=== PATIENT | female | born 1980 | race African-American/Black ===

== ENCOUNTER 2017-11-20 17:35 | Emergency (ER) | payer BC ==
[~2017-11-20] VITALS: Ht 177.8 cm; Wt 106.0 kg
[2017-11-20 17:37] VITALS: BP 110/70; PULSE 63; RESP 16; TEMP 97.5; O2SAT 99
[2017-11-20] MEDS ORDERED: SODIUM CHLOR 0.9% 1000 ML INJ 1,000 ML IV SCH (18:13)
[2017-11-20] MEDS ORDERED: SODIUM CHLORIDE 0.9% FLUSH 10 ML FLUSH IV FLUSH PRN (18:15)
[2017-11-20] MEDS ORDERED: ALUMINUM/MAGNESIUM/SIMETH 30 ML CUP PO ONE (18:15)
[2017-11-20] MEDS ORDERED: LIDOCAINE VISCOUS 2% SOLN 15 ML UDC PO ONE (18:15)
[2017-11-20] MEDS ORDERED: PANTOPRAZOLE SODIUM 40 MG VIAL IVP ONE (18:15)
[2017-11-20] MEDS ORDERED: DICYCLOMINE HCL 10 MG CAP PO ONE (18:15)
[2017-11-20] MEDS ORDERED: ONDANSETRON HCL 4 MG/2 ML VIAL IVP ONE (18:15)
[2017-11-20 18:35] LABS: BASOPHIL # 0.1 TH/MM3 (0-0.2); BASOPHIL % 1.1 % (0.0-2.0); EOSINOPHIL # 0.3 TH/MM3 (0-0.4); EOSINOPHIL % 3.1 % (0.0-4.0); HEMOGLOBIN 10.9 GM/DL (11.6-15.3); LYMPHOCYTE # 1.7 TH/MM3 (1.0-4.8); MEAN CELL VOLUME 83.9 FL (80.0-100.0); MEAN CORPUSCULAR HEMOGLOBIN 28.7 PG (27.0-34.0); MEAN CORPUSCULAR HGB CONC 34.2 % (32.0-36.0); MEAN PLATELET VOLUME 7.7 FL (7.0-11.0); MONO % 8.8 % (0.0-8.0); MONOCYTE # 0.8 TH/MM3 (0-0.9); PLATELET COUNT 348 TH/MM3 (150-450); RED BLOOD COUNT 3.81 MIL/MM3 (4.00-5.30); RED CELL DISTRIBUTION WIDTH 14.8 % (11.6-17.2); WHITE BLOOD COUNT 8.8 TH/MM3 (4.0-11.0)
--- NOTE | 2017-11-20 18:37 | PD ---
HPI Chief Complaint: GI Complaint Time Seen by Provider: 18:02 Travel History International Travel<30 days: No Contact w/Intl Traveler<30days: No Traveled to known affect area: No History of Present Illness HPI 37-year-old -[place] female presents to the emergency department with reports of sudden onset epigastric pain while cooking dinner at approximately 430 this afternoon. She states the pain was intense and lasted for more than 20 minutes. She felt first it might of been gas, and she tried having a BM with small BM accomplished. Patient then states she sat down to eat and the pain got significantly worse to the point of crying, and feeling nauseous with diarrhea or vomiting. Patient states the pain still remains, and when it was at its worse it was radiating up to the neck. Patient now states pain is about a 7 out of 10. It was 10 out of 10 earlier. Patient denies any fever, chills, or other symptoms. Patient states she does have a history of fibroids for which he has been taking a lot of NSAIDs recently. Patient is allergic to morphine. PFS Past Medical History Asthma: Yes Tetanus Vaccination: < 5 Years ?: Not Past Surgical History Other Surgery: Yes (MYOMECTONY 2015) Social History Alcohol Use: No Tobacco Use: No Substance Use: No Allergies-Medications (Allergen,Severity, Reaction): Coded Allergies: morphine (Verified Adverse Reaction, Mild, Nausea/Vomiting, 11/20/17) Reported Meds & Prescriptions Reported Meds & Active Scripts Active Omeprazole 40 Mg Cap 40 Mg PO DAILY Review of Systems Except as stated in HPI: all other systems reviewed are Neg General / Constitutional: No: Fever Eyes: No: Visual changes HENT: No: Headaches Cardiovascular: No: Chest Pain or Discomfort Respiratory: No: Shortness of Breath Gastrointestinal: Positive: Nausea, Abdominal Pain, No: Vomiting, Diarrhea Genitourinary: No: Dysuria Musculoskeletal: No: Pain Skin: No Rash Neurologic: No: Weakness Psychiatric: No: Depression Endocrine: No: Polydipsia Hematologic/Lymphatic: No: Easy Bruising Physical Exam Narrative GENERAL: Patient appears in no obvious distress. SKIN: Warm and dry. Normal color. Normal turgor. No rash. HEAD: Atraumatic. Normocephalic. EYES: Pupils equal and round. No scleral icterus. No injection or drainage. ENT: No nasal bleeding or discharge. Mucous membranes pink and moist. Pharynx is clear. Airways patent NECK: Trachea midline. Supple nontender. CARDIOVASCULAR: Regular rate and rhythm. RESPIRATORY: No accessory muscle use. Clear to auscultation. Breath sounds equal bilaterally. GASTROINTESTINAL: Abdomen soft, moderate upper epigastric tenderness reproducible of symptoms, nondistended. No CVA tenderness. Hepatic and splenic margins not palpable. MUSCULOSKELETAL: Extremities without clubbing, cyanosis, or edema. No obvious deformities. NEUROLOGICAL: Awake and alert. No obvious cranial nerve deficits. Motor grossly within normal limits. Five out of 5 muscle strength in the arms and legs. Normal speech. PSYCHIATRIC: Appropriate mood and affect; insight and judgment normal. Data Data Last Documented VS Vital Signs Date Time Temp Pulse Resp B/P (MAP) Pulse Ox O2 Delivery O2 Flow Rate FiO2 11/20/17 19:20 56 16 142/80 (100) 100 11/20/17 17:37 97.5 Orders Orders Complete Blood Count With Diff (11/20/17 18:13) Comprehensive Metabolic Panel (11/20/17 18:13) Lipase (11/20/17 18:13) Prothrombin Time / Inr (Pt) (11/20/17 18:13) Act Partial Throm Time (Ptt) (11/20/17 18:13) Urinalysis - C+S If Indicated (11/20/17 18:13) Iv Access Insert/Monitor (11/20/17 18:13) Ecg Monitoring (11/20/17 18:13) Oximetry (11/20/17 18:13) Ondansetron Inj (Zofran Inj) (11/20/17 18:15) Pantoprazole Inj (Protonix Inj) (11/20/17 18:15) Sodium Chlor 0.9% 1000 Ml Inj (Ns 1000 M (11/20/17 18:13) Sodium Chloride 0.9% Flush (Ns Flush) (11/20/17 18:15) Al-Mag Hy-Si 40-40-4 Mg/Ml Liq (Mag-Al P (11/20/17 18:15) Lidocaine 2% Viscous (Xylocaine 2% Visco (11/20/17 18:15) Dicyclomine (Bentyl) (11/20/17 18:15) Labs Laboratory Tests Test 11/20/17 18:00 11/20/17 19:30 White Blood Count 8.8 TH/MM3 Red Blood Count 3.81 MIL/MM3 Hemoglobin 10.9 GM/DL Hematocrit 32.0 % Mean Corpuscular Volume 83.9 FL Mean Corpuscular Hemoglobin 28.7 PG Mean Corpuscular Hemoglobin Concent 34.2 % Red Cell Distribution Width 14.8 % Platelet Count 348 TH/MM3 Mean Platelet Volume 7.7 FL Neutrophils (%) (Auto) 68.0 % Lymphocytes (%) (Auto) 19.0 % Monocytes (%) (Auto) 8.8 % Eosinophils (%) (Auto) 3.1 % Basophils (%) (Auto) 1.1 % Neutrophils # (Auto) 6.0 TH/MM3 Lymphocytes # (Auto) 1.7 TH/MM3 Monocytes # (Auto) 0.8 TH/MM3 Eosinophils # (Auto) 0.3 TH/MM3 Basophils # (Auto) 0.1 TH/MM3 CBC Comment DIFF FINAL Differential Comment Prothrombin Time 10.0 SEC Prothromb Time International Ratio 1.0 RATIO Activated Partial Thromboplast Time 25.1 SEC Blood Urea Nitrogen 10 MG/DL Creatinine 0.84 MG/DL Random Glucose 95 MG/DL Total Protein 7.6 GM/DL Albumin 4.0 GM/DL Calcium Level 8.6 MG/DL Alkaline Phosphatase 100 U/L Aspartate Amino Transf (AST/SGOT) 29 U/L Alanine Aminotransferase (ALT/SGPT) 21 U/L Total Bilirubin 0.2 MG/DL Sodium Level 138 MEQ/L Potassium Level 3.8 MEQ/L Chloride Level 104 MEQ/L Carbon Dioxide Level 28.7 MEQ/L Anion Gap 5 MEQ/L Estimat Glomerular Filtration Rate 76 ML/MIN Lipase 124 U/L Urine Color LIGHT-YELLOW Urine Turbidity CLEAR Urine pH 7.5 Urine Specific [place] 1.005 Urine Protein NEG mg/dL Urine Glucose (UA) NEG mg/dL Urine Ketones NEG mg/dL Urine Occult Blood NEG Urine Nitrite NEG Urine Bilirubin NEG Urine Urobilinogen LESS THAN 2.0 MG/DL Urine Leukocyte Esterase NEG Urine RBC 1 /hpf Microscopic Urinalysis Comment CULT NOT INDICATED MDM Medical Decision Making Medical Screen Exam Complete: Yes Emergency Medical Condition: Yes Differential Diagnosis Gastritis. Esophagitis. Esophageal spasm. Narrative Course Patient is medically stable at time of exam. Labs ordered including CBC, CMP, lipase, urinalysis. IV access is obtained the patient is given 4 mg Zofran IV as well as 10 mg Bentyl p.o. Patient is given a GI cocktail as well as 1000 mL normal saline bolus. CBC is unremarkable with a hemoglobin of 10.9, hematocrit 32.0. Coagulation studies are normal. Chemistries are normal with normal lipase as well as LFTs. Urinalysis is normal. Patient is felt stable for discharge home with a diagnosis of gastritis with esophagitis and possible esophageal spasm. Patient started on omeprazole 40 mg daily #30. Patient can take [id number] Tums or Mylanta as well as needed. Patient is to follow-up with field assessor as currently scheduled. Diagnosis Primary Impression: Esophagitis, acute Additional Impression: Gastritis Qualified Codes: K29.70 - Gastritis, unspecified, without bleeding Referrals: Justice Professor Patient Instructions: Diet for Stomach Ulcers and Gastritis (ED), General Instructions Additional Instructions: CBC is unremarkable with a hemoglobin of 10.9, hematocrit 32.0. Coagulation studies are normal. Chemistries are normal with normal lipase as well as LFTs. Urinalysis is normal. Patient is felt stable for discharge home with a diagnosis of gastritis with esophagitis and possible esophageal spasm. Patient started on omeprazole 40 mg daily #30. Patient can take [id number] Tums or Mylanta as well as needed. Patient is to follow-up with field assessor as currently scheduled. Med/Other Pt SpecificInfo: Prescription(s) given Scripts Omeprazole (Omeprazole) 40 Mg Cap 40 MG PO DAILY, #30 CAP 0 Refills Prov: Benja Maldonado MD 11/20/17 Disposition: DISCHARGE HOME Condition: Stable Abel Henderson Nov 20, 2017 18:37
[2017-11-20 18:55] LABS: ALT (GPT) 21 U/L (10-53); AST (GOT) 29 U/L (15-37); BICARBONATE 28.7 MEQ/L (21.0-32.0); BLOOD UREA NITROGEN 10 MG/DL (7-18); CALCIUM 8.6 MG/DL (8.5-10.1); CHLORIDE 104 MEQ/L (98-107); CREATININE 0.84 MG/DL (0.50-1.00); GLOMERULAR FILTRATION RATE 76 ML/MIN (>89); GLUCOSE,RANDOM 95 MG/DL (74-106); SODIUM (NA) 138 MEQ/L (136-145)
[2017-11-20 18:58] LABS: ALKALINE PHOSPHATASE 100 U/L (45-117); TOTAL BILIRUBIN ADULT 0.2 MG/DL (0.2-1.0); TOTAL PROTEIN 7.6 GM/DL (6.4-8.2)
[2017-11-20 19:20] VITALS: BP 142/80; PULSE 56; RESP 16; O2SAT 100
[2017-11-20 19:44] LABS: BILIRUBIN, URINE NEG (NEG); BLOOD, URINE NEG (NEG); GLUCOSE,URINE NEG (NEG); KETONE, URINE NEG (NEG); NITRITE,URINE NEG (NEG); PH, URINE 7.5 (5.0-8.5); URINE COLOR LIGHT-YELLOW (YELLW/STRAW); URINE LEUKOCYTE ESTERASE NEG (NEG)
[2017-11-20] MEDS ORDERED: OMEP40CA2 PO (19:47)
== END 2017-11-20 21:03 | disposition home or self-care (01) ==
LOC: NEPD 17:35
DX: K20.9 Esophagitis, unspecified (principal); K29.70 Gastritis, unspecified, without bleeding
CPT/HCPCS: 80053; 81001; 83690; 85025; 85610; 85730; 96374; 96375; 99284; C9113; J2405; J7030